=== PATIENT | male | born 1955 | race Caucasian/White ===

== ENCOUNTER 2022-07-15 19:33 | Inpatient (IN) ==
[2022-07-15 19:57] LABS: POC Creatinine 0.9 (0.6-1.2); POC Potassium 2.4 (3.3-5.1)
[2022-07-15] MEDS ORDERED: cefTRIAXone 1 GM VIAL IV ONE (20:27)
--- NOTE | 2022-07-15 20:27 | Emergency Department Note ---
HPI General Chief complaint: Rectal Bleed Stated complaint: Epigastric Pain Time Seen by Provider: 07/15/22 19:37 Source: patient and family Mode of arrival: ambulatory Limitations: no limitations History of Present Illness HPI Narrative: Narrative: Patient is a 67-year-old male with a history of liver mass and what he describes as a high average amount of drinking who presents to the emergency department due to weakness, fatigue, and blood in his vomit/stool. He states that for 2 days he has had significant weakness and fatigue. He states his weakness is generalized, and makes it difficult to walk. He states that 2 days ago he did have a fall. He states that he is having hard time walking approximately 20 feet due to the weakness and fatigue. He states that he vomited 2 days ago and had a significant amount of blood in his vomit that was bright red. He states that he had a small amount of bright red blood in his stool as well. He states that he has had a longer period of dark-colored stool. He denies any other symptoms at this time. Related Data Home Medications Medication Instructions Recorded Confirmed dorzolamide 22.3 mg-timolol 6.8 1 drp ophthalmic (eye) BID 07/15/22 07/15/22 mg/mL eye drops omeprazole 40 mg capsule,delayed 1 cap PO QDAY 07/15/22 07/15/22 release Allergies Allergy/AdvReac Type Severity Reaction Status Date / Time No Known Drug Allergies Allergy Verified 07/15/22 19:41 Review of Systems ROS ROS Narrative: Narrative: Constitutional: Reports weakness (Generalized); Denies fever Eyes: Denies eye pain or vision change ENT ED: Denies throat pain, hearing loss or rhinorrhea Cardiovascular: Denies chest pain, dyspnea on exertion, orthopnea or edema Respiratory: Denies shortness of breath or cough Gastrointestinal: Reports abdominal pain, nausea, vomiting, hematochezia and melena; Denies diarrhea or constipation Genitourinary: Denies dysuria, frequency, hematuria or incontinence Musculoskeletal: Denies back pain or myalgia Integumentary: Denies rash or lesions Neurological: Reports weakness (Generalized); Denies headache, numbness, confusion, abnormal gait or dizziness Endocrine: Denies fatigue or polyuria Hematological/Lymphatic: Denies easy bleeding or easy bruising [facility] Narrative Patient History Narrative: Narrative: Medical/Surgical/Family History All Active Problems (Updated 07/16/22 @ 02:19 by Richard Solis MD) Acute GI bleeding (Acute) Anemia (Acute) Abdominal pain (Acute) Skin lesion (Acute) Glaucoma (Chronic) Dermatitis (Chronic) Fatigue (Chronic) Cough (Chronic) Hemorrhagic diarrhea (Chronic) Physical exam (Chronic) Renal mass (Chronic) Syncope (Acute) Hives (Acute) Liver mass (Acute) Medical History Cough Dermatitis Fatigue Fatty liver MRI 03/18 Glaucoma POSSIBLE, IN LEFT EYE Hemorrhagic diarrhea Normal colonoscopy 09/17 Physical exam Renal mass Social History Smoking Status: Former smoker Substance Use: does not use Exam Narrative Narrative: Narrative: General Limitations: no limitations General appearance: Present alert and in no apparent distress; Absent anxious or appears intoxicated Head Head: Present atraumatic and normocephalic Eye Eye: Present PERRL and EOMI; Absent scleral icterus ENT ENT: Present mucous membranes moist; Absent nasal congestion Neck Neck: Present full ROM; Absent tenderness Chest Chest: Present normal inspection and symmetric chest wall rise Respiratory Respiratory: Present normal lung sounds bilaterally; Absent respiratory distress or accessory muscle use Cardiovascular Cardiovascular: Present regular rate, normal rhythm and normal heart sounds Adbominal Abdominal: Present soft, tenderness (Mild epigastric) and normal bowel sounds; Absent distention Extremities Extremities: Present normal inspection and full ROM Back Back: Present normal inspection and full ROM Neurological Neurological: Present alert and oriented X3 Psychiatric Psychiatric: Present normal affect and normal mood Skin Skin: Present warm (WNL), dry and pallor Course Vital Signs Vital signs: Vital Signs Temperature 97.9 F 07/15/22 19:35 Pulse Rate 119 H 07/15/22 19:35 Respiratory Rate 18 07/15/22 19:35 Blood Pressure 84/52 07/15/22 19:35 Pulse Oximetry (%) 95 07/15/22 19:35 Oxygen Delivery Method 07/15/22 19:35 Temperature 97.9 F 07/15/22 19:35 Pulse Rate 82 07/16/22 01:38 Respiratory Rate 12 07/16/22 01:38 Blood Pressure 102/63 07/16/22 01:38 Pulse Oximetry (%) 98 07/16/22 01:38 Oxygen Delivery Method 07/15/22 19:35 MDM MDM Narrative Medical decision making narrative: Narrative: Patient is a 67-year-old male who presents to the emergency department due to concern for weakness, fatigue, and blood in his vomit and stool. Given patient's reported alcohol use there is some concern that his bleed could be due to varices, but he does report a history concerning for reflux and potential peptic ulcer disease. Patient's tachycardia and mild hypotension upon arrival is concerning for significant anemia. Patient's Chem-8 demonstrates a concern for anemia with a hemoglobin of 6.5. Lab CBC shows a hemoglobin of 4.4. Blood has been ordered. Protonix bolus and drip have also been ordered. Ceftriaxone has also been ordered. We have begun to look for locations where we can transfer patient. Patient is also found to have a potassium of 2.4. Potassium and magnesium have been ordered. While attempting to transfer patient a bed at [facility] opened. I called and spoke to Dr. Polanco about this patient and he agreed to see, evaluate, and perform endoscopy on this patient. He requested hospitalist admission. I have spoken to Dr. Elmore who agrees to admit patient. Lab Data Result diagrams: 07/15/22 19:50 Labs: Lab Results 07/15/22 07/15/22 07/15/22 Range/Units 19:50 19:52 20:20 WBC 7.6 (4.5-11.0) K/mcL RBC 1.56 L (4.63-6.08) M/mcL Hgb 4.4 L* (13.7-17.5) g/dL Hct 14.7 L* (40.1-51.0) % POC Hct 19.0 L* (41-55) MCV 94.2 (80.0-100.0) fL MCH 28.2 (26.0-34.0) pg MCHC 29.9 L (31.0-36.0) g/dL RDW 18.1 H (11.5-14.5) % Plt Count 423 (140-440) K/mcL MPV 9.8 (7.4-10.4) fL Immature Gran % (Auto) 0.4 (0.0-0.5) % Neut % (Auto) 58.4 (38.0-78.0) % Lymph % (Auto) 26.5 (15.5-49.0) % [place] % (Auto) 9.7 (1.0-12.0) % Eos % (Auto) 4.7 (0.0-7.0) % Baso % (Auto) 0.3 (0.0-2.0) % Lymph # (Auto) 2.02 (1.50-4.80) K/mcL [place] # (Auto) 0.74 (0.10-0.90) K/mcL Eos # (Auto) 0.36 (0.00-0.70) K/mcL Baso # (Auto) 0.02 (0.00-0.30) K/mcL Immature Gran # 0.03 (0.00-0.05) K/mcl Absolute Neutrophils 4.46 (1.80-8.00) K/mcL PT 14.5 (11.9-14.5) sec INR 1.1 (0.9-1.1) POC Sodium 135 (133-145) POC Potassium 2.4 L* (3.3-5.1) POC Chloride 87 L (96-108) POC Total CO2 25.0 (22-30) POC BUN 15 (6-20) POC Creatinine 0.9 (0.6-1.2) POC Glucose 87 (70-105) POC WB Ioniz Calcium 1.00 L (1.16-1.32) Total Bilirubin (0.1-1.0) mg/dL Direct Bilirubin (<0.3) mg/dL AST (<40) U/L ALT (<40) U/L Alkaline Phosphatase (39-117) U/L Total Protein (5.9-8.4) gm/dL Albumin (3.2-5.2) gm/dL Globulin (2.2-3.7) gm/dL 07/15/22 Range/Units 20:20 WBC (4.5-11.0) K/mcL RBC (4.63-6.08) M/mcL Hgb (13.7-17.5) g/dL Hct (40.1-51.0) % POC Hct (41-55) MCV (80.0-100.0) fL MCH (26.0-34.0) pg MCHC (31.0-36.0) g/dL RDW (11.5-14.5) % Plt Count (140-440) K/mcL MPV (7.4-10.4) fL Immature Gran % (Auto) (0.0-0.5) % Neut % (Auto) (38.0-78.0) % Lymph % (Auto) (15.5-49.0) % [place] % (Auto) (1.0-12.0) % Eos % (Auto) (0.0-7.0) % Baso % (Auto) (0.0-2.0) % Lymph # (Auto) (1.50-4.80) K/mcL [place] # (Auto) (0.10-0.90) K/mcL Eos # (Auto) (0.00-0.70) K/mcL Baso # (Auto) (0.00-0.30) K/mcL Immature Gran # (0.00-0.05) K/mcl Absolute Neutrophils (1.80-8.00) K/mcL PT (11.9-14.5) sec INR (0.9-1.1) POC Sodium (133-145) POC Potassium (3.3-5.1) POC Chloride (96-108) POC Total CO2 (22-30) POC BUN (6-20) POC Creatinine (0.6-1.2) POC Glucose (70-105) POC WB Ioniz Calcium (1.16-1.32) Total Bilirubin 0.5 (0.1-1.0) mg/dL Direct Bilirubin 0.3 H (<0.3) mg/dL AST 86 H (<40) U/L ALT 37 (<40) U/L Alkaline Phosphatase 96 (39-117) U/L Total Protein 6.2 (5.9-8.4) gm/dL Albumin 3.3 (3.2-5.2) gm/dL Globulin 2.9 (2.2-3.7) gm/dL ED POC Tests ED POC Tests: GRETTA - SARS Antigen Negative EKG Data EKG #1: EKG attestation: Yes I reviewed and interpreted this EKG. EKG results narrative: Sinus tachycardia with a rate of 100, normal axis, [place] of approximately 120, QRS of 65, QTC of 541, T wave flattening in leads I, 2, 3, aVL, aVF, and absence of ST elevation or depression. Discharge Plan Patient/Caregiver Discharge Instructions Pt seen by SPECIAL EDUCATION SCIENCE TEACHER/PA only: No Clinical Impression: Acute GI bleeding, Anemia Patient Disposition: Xfer As Inpt ([facility]) Condition: Good Follow up with: Meka Polanco ARNP [Primary Care Provider] - Prescriptions: No Action dorzolamide-timolol 22.3-6.8 mg/mL drops 1 drp OPHTHALMIC (EYE) BID omeprazole 40 mg capsule,delayed release(DR/EC) 1 cap PO QDAY
[2022-07-15] MEDS ORDERED: PANTOPRAZOLE 40 MG VIAL IV ONE (20:31)
[2022-07-15] MEDS: 0.9 % SODIUM CHLORIDE 250 ML IV SCH (20:49)
[2022-07-15 20:59] LABS: Basophils # (Auto) 0.02 K/mcL (0.00-0.30); Basophils % (Auto) 0.3 % (0.0-2.0); Eosinophils # (Auto) 0.36 K/mcL (0.00-0.70); Eosinophils % (Auto) 4.7 % (0.0-7.0); Hematocrit 14.7 % (40.1-51.0); Hemoglobin 4.4 g/dL (13.7-17.5); Lymphocytes # (Auto) 2.02 K/mcL (1.50-4.80); Lymphocytes % (Auto) 26.5 % (15.5-49.0); Mean Cell Volume 94.2 fL (80.0-100.0); Mean Corpuscular HGB Conc 29.9 g/dL (31.0-36.0); Mean Platelet Volume 9.8 fL (7.4-10.4); Monocytes # (Auto) 0.74 K/mcL (0.10-0.90); Monocytes % (Auto) 9.7 % (1.0-12.0); Neutrophils % (Auto) 58.4 % (38.0-78.0); Platelet Count 423 K/mcL (140-440); RBC 1.56 M/mcL (4.63-6.08); Red Cell Distribution Width 18.1 % (11.5-14.5); WBC 7.6 K/mcL (4.5-11.0)
[2022-07-15] MEDS ORDERED: 0.9 % SODIUM CHLORIDE 250 ML IV SCH (21:15)
[2022-07-15 21:19] LABS: ALT/SGPT 37 U/L (<40); AST/SGOT 86 U/L (<40); Albumin 3.3 gm/dL (3.2-5.2); Alkaline Phosphatase 96 U/L (39-117); Bilirubin,Direct 0.3 mg/dL (<0.3); Bilirubin,Total 0.5 mg/dL (0.1-1.0); Globulin 2.9 gm/dL (2.2-3.7)
[2022-07-15 21:20] LABS: INR 1.1 (0.9-1.1); Prothrombin Time 14.5 sec (11.9-14.5)
[2022-07-15] MEDS ORDERED: POTASSIUM CHLORIDE 20 MEQ in DEXTROSE 5% IN WATER 250 ML IV ONE (21:28)
[2022-07-15] MEDS ORDERED: MAGNESIUM SULFATE 8.12 MEQ in DEXTROSE 5% IN WATER 50 ML IV ONE (21:28)
[2022-07-15] MEDS: PANTOPRAZOLE 80 MG in 0.9 % SODIUM CHLORIDE 100 ML IV SCH (21:31)
[2022-07-15] MEDS ORDERED: POTASSIUM CHLORIDE 40 MEQ/20 ML VIAL IV ONE (22:22)
[2022-07-16] MEDS ORDERED: LORazepam 2 MG/ML VIAL IM PRN (02:16)
[2022-07-16] MEDS: 0.9 % SODIUM CHLORIDE 250 ML IV SCH ×3 (07:24→20:33)
[2022-07-16] MEDS ORDERED: LORazepam 2 MG/ML VIAL IV PRN (07:58)
[2022-07-16 08:05] LABS: Basophils # (Auto) 0.02 K/mcL (0.00-0.30); Basophils % (Auto) 0.3 % (0.0-2.0); Eosinophils % (Auto) 1.7 % (0.0-7.0); Hematocrit 24.5 % (40.1-51.0); Hemoglobin 7.9 g/dL (13.7-17.5); Lymphocytes # (Auto) 0.82 K/mcL (1.50-4.80); Lymphocytes % (Auto) 14.1 % (15.5-49.0); Mean Cell Volume 87.2 fL (80.0-100.0); Mean Corpuscular HGB Conc 32.2 g/dL (31.0-36.0); Mean Platelet Volume 9.6 fL (7.4-10.4); Monocytes # (Auto) 0.73 K/mcL (0.10-0.90); Monocytes % (Auto) 12.5 % (1.0-12.0); Neutrophils % (Auto) 70.7 % (38.0-78.0); Platelet Count 217 K/mcL (140-440); RBC 2.81 M/mcL (4.63-6.08); Red Cell Distribution Width 16.2 % (11.5-14.5); WBC 5.8 K/mcL (4.5-11.0)
--- NOTE | 2022-07-16 08:45 | General Surgery Consult Note ---
HPI Data of Consult Consult date: 07/16/22 Requesting physician: Santo Elmore Primary Care Provider: Meka Polanco Consult Narrative Patient Information: Note initiated : 07/16/22 at 8:35 am Service Date, if different from initiated Date: [] Patient: Jose Alfonso 67 y/o M admitted on 07/16/22 for Epigastric Pain. Chief Complaint: [] cc:: CC: Santo Elmore MD 67-year-old male with long history of chronic alcoholism. Patient had 2 episodes of rectal bleeding with bright red and black stools a few days ago. He also had emesis of bright red blood. He is he became progressively weaker and dizzy and presented to the emergency room where he was found to have a hemoglobin of 4.4. He has been transfused and his present hemoglobin is 7.9. Patient does not take any nonsteroidals or salicylate type drugs. He is being seen for urgent endoscopy to assess the source of his bleeding. Constitutional Constitutional: Present anorexia, fatigue, lethargy, malaise and weight loss (20 pound weight loss) EENT Ears: Absent decreased hearing Nose, mouth and throat: Absent dental pain Additional comments: Full dentures Cardiovascular Cardiovascular: Present lightheadedness, orthopnea, palpatations and rapid heart rate; Absent dyspnea Respiratory Respiratory: Absent cough or wheezing Gastrointestinal Gastrointestinal: Present abdominal pain, heartburn, hematochezia, melena, nausea and vomiting Musculoskeletal Musculoskeletal: Present myalgias Integumentary Integumentary: Absent changing lesions, new lesions or pruritus Neurological Neurological: Present tremor(s); Absent focal weakness, syncope or vertigo Psychiatric Psychiatric: Present irritability; Absent depression Endocrine Endocrine: Present fatigue Hematologic/Lymphatic Hematologic/Lymphatic: Absent easy bleeding, easy bruising or lymphadenopathy Allergic/Immunologic Allergic/Immunologic: Absent tongue swelling, throat swelling, uticaria, wheezing or lip swelling PFSH PFSH All Active Problems (Updated 07/16/22 @ 08:44 by Yoselyn Polanco MD) Acute on chronic alcoholic liver disease (Acute) Acute GI bleeding (Acute) Anemia (Acute) Abdominal pain (Acute) Skin lesion (Acute) Glaucoma (Chronic) Dermatitis (Chronic) Fatigue (Chronic) Cough (Chronic) Hemorrhagic diarrhea (Chronic) Physical exam (Chronic) Renal mass (Chronic) Syncope (Acute) Hives (Acute) Liver mass (Acute) Medical History Cough Dermatitis Fatigue Fatty liver MRI 03/18 Glaucoma POSSIBLE, IN LEFT EYE Hemorrhagic diarrhea Normal colonoscopy 09/17 Physical exam Renal mass Social History marital status: single smoking status: Never smoker substance use type: does not use MEDS/ALLERGIES Home Medications and Allergies Home Medications Medication Instructions Recorded Confirmed Type dorzolamide 22.3 mg-timolol 6.8 1 drp ophthalmic (eye) BID 07/15/22 07/16/22 History mg/mL eye drops omeprazole 40 mg capsule,delayed 1 cap PO QDAY 07/15/22 07/16/22 History release acetaminophen 500 mg tablet 500 mg PO PRN PRN pain 07/16/22 07/16/22 History multivitamin with minerals-folic 1 tab PO QDAY 07/16/22 07/16/22 History acid 200 mcg chewable tablet (Adult Multivitamin Gummies) Allergies Allergy/AdvReac Type Severity Reaction Status Date / Time No Known Drug Allergies Allergy Verified 07/16/22 07:41 Physical Examination Vital Signs Vital signs: Temp Pulse Resp BP Pulse Ox O2 Del Method 98.6 F 90 22 127/72 97 07/16/22 08:00 07/16/22 08:00 07/16/22 08:00 07/16/22 08:00 07/16/22 08:00 07/15/22 19:35 General physical appearance General physical exam: no distress, severe distress and cachectic Eyes Eye exam: PERRL and normal ocular movement; negative icteric ENT ENT exam: normal mucosa and other (Edentulous); negative no hearing loss Head Head exam IM: Present atraumatic, normal inspection and normocephalic Neck Neck exam: no masses, no bruits, trachea midline, no lymphadenopathy and no venous distension Cardiovascular Cardiovascular exam IM: Present normal rate and rhythm, RRR, +S1 and +S2; Absent JVD Respiratory Respiratory exam: normal expansion, normal respiratory effort and clear to auscultation Abdomen Abdomen: Present soft, non tender and bowel sounds (Normal bowel sounds); Absent organomegaly or distended Integumentary Integumentary: Present no rash, no growths and no abnormal pigmentation Neurologic Neurologic: Present normal coordination and normal sensation Musculoskeletal Musculoskeletal: Present normal gait and normal posture Psychiatric Psychiatric: Present oriented to time, oriented to person, oriented to place, speech is normal, memory intact and other Results Labs Result diagrams: 07/16/22 06:51 07/16/22 08:06 Labs: Abnormal lab results 07/15/22 07/15/22 07/15/22 Range/Units 19:50 19:52 20:20 RBC 1.56 L (4.63-6.08) M/mcL Hgb 4.4 L* (13.7-17.5) g/dL Hct 14.7 L* (40.1-51.0) % POC Hct 19.0 L* (41-55) MCHC 29.9 L (31.0-36.0) g/dL RDW 18.1 H (11.5-14.5) % Immature Gran % (Auto) (0.0-0.5) % Lymph % (Auto) (15.5-49.0) % [place] % (Auto) (1.0-12.0) % Lymph # (Auto) (1.50-4.80) K/mcL POC Potassium 2.4 L* (3.3-5.1) POC Chloride 87 L (96-108) POC WB Ioniz Calcium 1.00 L (1.16-1.32) Direct Bilirubin 0.3 H (<0.3) mg/dL AST 86 H (<40) U/L 07/16/22 Range/Units 06:51 RBC 2.81 L (4.63-6.08) M/mcL Hgb 7.9 L (13.7-17.5) g/dL Hct 24.5 L (40.1-51.0) % POC Hct (41-55) MCHC (31.0-36.0) g/dL RDW 16.2 H (11.5-14.5) % Immature Gran % (Auto) 0.7 H (0.0-0.5) % Lymph % (Auto) 14.1 L (15.5-49.0) % [place] % (Auto) 12.5 H (1.0-12.0) % Lymph # (Auto) 0.82 L (1.50-4.80) K/mcL POC Potassium (3.3-5.1) POC Chloride (96-108) POC WB Ioniz Calcium (1.16-1.32) Direct Bilirubin (<0.3) mg/dL AST (<40) U/L Diabetes panel 07/15/22 Range/Units 20:20 AST 86 H (<40) U/L ALT 37 (<40) U/L Alkaline Phosphatase 96 (39-117) U/L Total Protein 6.2 (5.9-8.4) gm/dL Albumin 3.3 (3.2-5.2) gm/dL Calcium panel 07/15/22 Range/Units 20:20 Albumin 3.3 (3.2-5.2) gm/dL Adrenal panel 07/15/22 Range/Units 20:20 Total Bilirubin 0.5 (0.1-1.0) mg/dL AST 86 H (<40) U/L ALT 37 (<40) U/L Alkaline Phosphatase 96 (39-117) U/L Total Protein 6.2 (5.9-8.4) gm/dL Albumin 3.3 (3.2-5.2) gm/dL All other labs normal. A/P Assessment and plan (1) Acute GI bleeding: Status: Acute (2) Anemia: Status: Acute (3) Acute on chronic alcoholic liver disease: Status: Acute (4) Fatigue: Status: Chronic Plan Patient has been started on pantoprazole Octreotide drip will be ordered pending endoscopy And patient should be monitored for possible alcohol withdrawal Upper endoscopy will be performed later this morning Sepsis Sepsis Identified: No Time Spent With Patient Time: Total time spent is greater than 50% in coordination of care (as documented) at patient's floor/unit and/or counseling patient:
[2022-07-16] MEDS ORDERED: OCTREOTIDE ACETATE 100 MCG/ML VIAL SQ ONE (09:00)
[2022-07-16] MEDS ORDERED: OCTREOTIDE ACETATE 500 MCG in 0.9 % SODIUM CHLORIDE 499.5 ML IV SCH (09:00)
[2022-07-16] MEDS ORDERED: OCTREOTIDE ACETATE 50 MCG/ML AMPUL IV ONE (09:00)
[2022-07-16] MEDS: PANTOPRAZOLE 80 MG in 0.9 % SODIUM CHLORIDE 100 ML IV SCH ×3 (09:03→20:34)
[2022-07-16 09:16] LABS: Blood Urea Nitrogen 16 mg/dL (8-23); Calcium 7.5 mg/dL (8.6-10.4); Carbon Dioxide 28 mmol/L (22-30); Chloride 94 mmol/L (96-108); Glomerular Filtration Rate 103; Glucose 89 mg/dL (70-105)
--- NOTE | 2022-07-16 10:49 | Internal Med History&Physical ---
HPI History of Present Illness Patient information: Note initiated : 07/16/22 at 10:45 am Service Date, if different from initiated Date: [] Patient: Jose Alfonso 67 y/o M admitted on 07/16/22 for Epigastric Pain. Chief Complaint: [] History of present illness: Mr. Alfonso is a 67 year old Male with a history of alcohol use disorder, GERD who says he has experienced abdominal discomfort and dark stools for couple weeks. This is similar to abdominal discomfort he experienced before, he said he was given a prescription for omeprazole which helped his pain. The patient says that he does drink whiskey 3 times a week, denies NSAID use. The emergency department the patient had a hemoglobin of 4.4, will receive 3 units of red blood cells. Patient was hemodynamically stable after starting a blood transfusion. Review of systems Constitutional: no fever, fatigue, or weight loss Eyes: no vision changes or pain Cardiovascular: no chest pain, no palpitations Respiratory: no cough or dyspnea Gastrointestinal: Positive for epigastric abdominal pain, dark stools. Genitourinary: no dysuria or difficulty voiding Musculoskeletal: no arthralgia or myalgia Integumentary: no skin lesion or wound Neurological: no focal weakness or numbness Psychiatric: no anxiety or depression Physical exam Head: Atraumatic, normal inspection. Eyes: normal appearance, no scleral icterus. Neck: full ROM Respiratory: no respiratory distress. Cardiovascular: normal rate and rhythm, S1, S2. GI/Abdominal: soft, mild epigastric discomfort, no guarding. Extremities: full range of motion, nontender. Neurological: CN II-XII intact, intact motor, intact sensation. Psychiatric: normal mood. Skin: warm, normal color PFSH PFSH All Active Problems (Updated 07/16/22 @ 08:44 by Yoselyn Polanco MD) Acute on chronic alcoholic liver disease (Acute) Acute GI bleeding (Acute) Anemia (Acute) Abdominal pain (Acute) Skin lesion (Acute) Glaucoma (Chronic) Dermatitis (Chronic) Fatigue (Chronic) Cough (Chronic) Hemorrhagic diarrhea (Chronic) Physical exam (Chronic) Renal mass (Chronic) Syncope (Acute) Hives (Acute) Liver mass (Acute) Medical History Cough Dermatitis Fatigue Fatty liver MRI 03/18 Glaucoma POSSIBLE, IN LEFT EYE Hemorrhagic diarrhea Normal colonoscopy 09/17 Physical exam Renal mass Social History marital status: single smoking status: Never smoker substance use type: does not use MEDS/ALLERGIES Home Medications and Allergies Home Medications Medication Instructions Recorded Confirmed Type dorzolamide 22.3 mg-timolol 6.8 1 drp ophthalmic (eye) BID 07/15/22 07/16/22 History mg/mL eye drops omeprazole 40 mg capsule,delayed 1 cap PO QDAY 07/15/22 07/16/22 History release acetaminophen 500 mg tablet 500 mg PO PRN PRN pain 07/16/22 07/16/22 History multivitamin with minerals-folic 1 tab PO QDAY 07/16/22 07/16/22 History acid 200 mcg chewable tablet (Adult Multivitamin Gummies) Allergies Allergy/AdvReac Type Severity Reaction Status Date / Time No Known Drug Allergies Allergy Verified 07/16/22 07:41 EXAM Constitutional Vitals: Temp Pulse Resp BP Pulse Ox O2 Del Method 98.6 F 83 16 133/71 95 07/16/22 08:00 07/16/22 10:00 07/16/22 10:00 07/16/22 10:00 07/16/22 10:00 07/15/22 19:35 DATA Data Completed and Pending Labs: Labs from last 24 hours 07/16/22 07/16/22 07/15/22 08:06 06:51 20:20 WBC 5.8 RBC 2.81 L Hgb 7.9 L Hct 24.5 L POC Hct MCV 87.2 MCH 28.1 MCHC 32.2 RDW 16.2 H Plt Count 217 MPV 9.6 Immature Gran % (Auto) 0.7 H Neut % (Auto) 70.7 Lymph % (Auto) 14.1 L [place] % (Auto) 12.5 H Eos % (Auto) 1.7 Baso % (Auto) 0.3 Lymph # (Auto) 0.82 L [place] # (Auto) 0.73 Eos # (Auto) 0.10 Baso # (Auto) 0.02 Immature Gran # 0.04 Absolute Neutrophils 4.11 PT INR POC Sodium Sodium 135 POC Potassium Potassium 3.0 L POC Chloride Chloride 94 L Carbon Dioxide 28 POC Total CO2 Anion Gap 13.0 POC BUN BUN 16 Creatinine 0.6 L POC Creatinine GFR Calculation 103 Glucose 89 POC Glucose Calcium 7.5 L POC WB Ioniz Calcium Magnesium 2.0 Total Bilirubin 0.5 Direct Bilirubin 0.3 H AST 86 H ALT 37 Alkaline Phosphatase 96 Total Protein 6.2 Albumin 3.3 Globulin 2.9 07/15/22 07/15/22 07/15/22 20:20 19:52 19:50 WBC 7.6 RBC 1.56 L Hgb 4.4 L* Hct 14.7 L* POC Hct 19.0 L* MCV 94.2 MCH 28.2 MCHC 29.9 L RDW 18.1 H Plt Count 423 MPV 9.8 Immature Gran % (Auto) 0.4 Neut % (Auto) 58.4 Lymph % (Auto) 26.5 [place] % (Auto) 9.7 Eos % (Auto) 4.7 Baso % (Auto) 0.3 Lymph # (Auto) 2.02 [place] # (Auto) 0.74 Eos # (Auto) 0.36 Baso # (Auto) 0.02 Immature Gran # 0.03 Absolute Neutrophils 4.46 PT 14.5 INR 1.1 POC Sodium 135 Sodium POC Potassium 2.4 L* Potassium POC Chloride 87 L Chloride Carbon Dioxide POC Total CO2 25.0 Anion Gap POC BUN 15 BUN Creatinine POC Creatinine 0.9 GFR Calculation Glucose POC Glucose 87 Calcium POC WB Ioniz Calcium 1.00 L Magnesium Total Bilirubin Direct Bilirubin AST ALT Alkaline Phosphatase Total Protein Albumin Globulin A/P Narrative A/P Narrative: Assessment: 67-year-old male with a history of alcohol use disorder, GERD admitted for acute anemia likely secondary to upper GI bleed. #Acute anemia, probable upper GI bleed #Alcohol use disorder #GERD #Malnourishment Plan -Received 3 units of red blood cell in the ED. -Monitor hemoglobin, transfuse for hemoglobin less than 7 or symptomatic anemia. -Helicobacter pylori stool antigen. -Protonix infusion. -Plan for EGD with general surgery. -Vitamin supplementation. -Monitor for alcohol withdrawal. -N.p.o. for EGD. 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
[2022-07-16] MEDS ORDERED: fentaNYL 100 MCG/2 ML VIAL IV ONE (11:30)
[2022-07-16] MEDS ORDERED: KETAMINE 50 MG/ML Syringe (ANEST) IV ONE (11:30)
[2022-07-16] MEDS ORDERED: LIDOCAINE HCL/PF 100 MG/5 ML SYRINGE IV ONE (11:30)
[2022-07-16] MEDS ORDERED: PROPOFOL 200 MG/20 ML VIAL IV ONE (11:30)
[2022-07-16] MEDS ORDERED: GLYCOPYRROLATE 0.2 MG/ML VIAL IV ONE (11:30)
--- NOTE | 2022-07-16 12:09 | Brief Operative Note ---
Brief Operative Note Date of procedure: 07/16/22 Pre-op diagnosis: upper gastrointestinal bleeding;hemorrhagic anemia Post-op diagnosis: other (acute toxic gastropathywithout varices or ulceration) Procedure: ESOPHAGOGASTRODUODENOSCOPY Grafts/Implants: No Anesthesia: MAC Findings: DIFFUSE THICKENING AND EDEMA OF GASTRIC FOLDS;NORMAL ESOPHAGUS WITHOUT ULCERATION OR VARICES; THICKENING OF DUODENAL FOLDS; SMALL AMOUNT OF THIN BLOOD IN DUODENAL BULB Complications: none Surgeon: Yoselyn Polanco Estimated blood loss (cc): 0 Specimens Removed/Pathology: none sent Condition: stable Disposition: PACU
[2022-07-16] MEDS: THIAMINE 100 MG in 0.9 % SODIUM CHLORIDE 50 ML IV SCH (13:11)
[2022-07-16 13:41] LABS: Basophils # (Auto) 0.01 K/mcL (0.00-0.30); Basophils % (Auto) 0.2 % (0.0-2.0); Eosinophils # (Auto) 0.07 K/mcL (0.00-0.70); Eosinophils % (Auto) 1.4 % (0.0-7.0); Hematocrit 23.5 % (40.1-51.0); Hemoglobin 7.6 g/dL (13.7-17.5); Lymphocytes # (Auto) 0.67 K/mcL (1.50-4.80); Lymphocytes % (Auto) 13.2 % (15.5-49.0); Mean Cell Volume 87.4 fL (80.0-100.0); Mean Corpuscular HGB Conc 32.3 g/dL (31.0-36.0); Mean Platelet Volume 9.4 fL (7.4-10.4); Monocytes # (Auto) 0.57 K/mcL (0.10-0.90); Monocytes % (Auto) 11.2 % (1.0-12.0); Neutrophils % (Auto) 73.4 % (38.0-78.0); Platelet Count 194 K/mcL (140-440); RBC 2.69 M/mcL (4.63-6.08); Red Cell Distribution Width 16.7 % (11.5-14.5); WBC 5.1 K/mcL (4.5-11.0)
[2022-07-16] MEDS ORDERED: POTASSIUM CHLORIDE 40 MEQ in DEXTROSE 5% IN WATER 500 ML IV ONE (16:00)
[2022-07-16] MEDS ORDERED: LACTATED RINGERS 1,000 ML IV ONE (17:22)
[2022-07-16 18:45] LABS: Basophils # (Auto) 0.01 K/mcL (0.00-0.30); Basophils % (Auto) 0.2 % (0.0-2.0); Eosinophils # (Auto) 0.04 K/mcL (0.00-0.70); Eosinophils % (Auto) 0.9 % (0.0-7.0); Hematocrit 26.9 % (40.1-51.0); Hemoglobin 8.3 g/dL (13.7-17.5); Lymphocytes # (Auto) 0.78 K/mcL (1.50-4.80); Lymphocytes % (Auto) 17.9 % (15.5-49.0); Mean Cell Volume 91.2 fL (80.0-100.0); Mean Corpuscular HGB Conc 30.9 g/dL (31.0-36.0); Mean Platelet Volume 9.6 fL (7.4-10.4); Monocytes # (Auto) 0.55 K/mcL (0.10-0.90); Monocytes % (Auto) 12.6 % (1.0-12.0); Neutrophils % (Auto) 67.9 % (38.0-78.0); Platelet Count 167 K/mcL (140-440); RBC 2.95 M/mcL (4.63-6.08); Red Cell Distribution Width 16.4 % (11.5-14.5); WBC 4.4 K/mcL (4.5-11.0)
[2022-07-17] MEDS: PANTOPRAZOLE 80 MG in 0.9 % SODIUM CHLORIDE 100 ML IV SCH ×2 (06:39→07:04)
[2022-07-17 06:44] LABS: Basophils # (Auto) 0.02 K/mcL (0.00-0.30); Basophils % (Auto) 0.4 % (0.0-2.0); Eosinophils # (Auto) 0.11 K/mcL (0.00-0.70); Hematocrit 24.7 % (40.1-51.0); Hemoglobin 7.9 g/dL (13.7-17.5); Lymphocytes # (Auto) 0.81 K/mcL (1.50-4.80); Lymphocytes % (Auto) 14.4 % (15.5-49.0); Mean Cell Volume 89.2 fL (80.0-100.0); Mean Platelet Volume 9.6 fL (7.4-10.4); Monocytes # (Auto) 0.52 K/mcL (0.10-0.90); Monocytes % (Auto) 9.2 % (1.0-12.0); Neutrophils % (Auto) 73.8 % (38.0-78.0); Platelet Count 188 K/mcL (140-440); RBC 2.77 M/mcL (4.63-6.08); Red Cell Distribution Width 16.2 % (11.5-14.5); WBC 5.6 K/mcL (4.5-11.0)
[2022-07-17 07:09] LABS: Blood Urea Nitrogen 10 mg/dL (8-23); Calcium 7.2 mg/dL (8.6-10.4); Carbon Dioxide 25 mmol/L (22-30); Chloride 98 mmol/L (96-108); Glomerular Filtration Rate 111; Glucose 119 mg/dL (70-105); Haptoglobin 82 mg/dL (30-200); Iron 31 ug/dL (61-157); Lactate Dehydrogenase 196 U/L (135-225); TIBC Calculation 242 ug/dl (228-428); Transferrin % Saturation 13 % (20-50)
[2022-07-17] MEDS ORDERED: FOLIC ACID/VITAMIN B COMP W-C 1 TAB TABLET PO SCH (09:00)
[2022-07-17] MEDS: THIAMINE 100 MG in 0.9 % SODIUM CHLORIDE 50 ML IV SCH (09:02)
[2022-07-17] MEDS ORDERED: IOPAMIDOL 100 ML BOTTLE IV ONE (10:20)
[2022-07-17] MEDS ORDERED: IRON SUCROSE COMPLEX 400 MG in 0.9 % SODIUM CHLORIDE 250 ML IV SCH (11:00)
--- NOTE | 2022-07-17 11:12 | Internal Med Progress Note ---
SUBJECTIVE Subjective Patient information: Note initiated : 07/17/22 at 11:08 am Service Date, if different from initiated Date: [] Patient: Jose Alfonso 67 y/o M admitted on 07/16/22 for Epigastric Pain. Chief Complaint: [] Interval history: Mr. Alfonso is a 67 year old Male with a history of alcohol use disorder, GERD who says he has experienced abdominal discomfort and dark stools for couple weeks. This is similar to abdominal discomfort he experienced before, he said he was given a prescription for omeprazole which helped his pain. The patient says that he does drink whiskey 3 times a week, denies NSAID use. The emergency department the patient had a hemoglobin of 4.4, will receive 3 units of red blood cells. Patient was hemodynamically stable after starting a blood transfusion. 07/17 EGD showed diffuse thickening and edema of the gastric folds, esophagus without ulceration or varices, thickening of duodenal folds, small amount of thin blood in the duodenal bulb. Discussed with general surgery, did not feel this explains the patient's anemia, ordered CT abdomen pelvis to evaluate for cause of anemia. Otherwise, the patient's hemoglobin is stable. Venofer IV once today. Continues on Protonix infusion, monitoring hemoglobin. Physical exam Head: Atraumatic, normal inspection. Eyes: normal appearance, no scleral icterus. Neck: full ROM Respiratory: no respiratory distress. Cardiovascular: normal rate and rhythm, S1, S2. GI/Abdominal: soft, mild epigastric discomfort, no guarding. Extremities: full range of motion, nontender. Neurological: CN II-XII intact, intact motor, intact sensation. Psychiatric: normal mood. Skin: warm, normal color Constitutional Vitals: Vital Signs Temp Pulse Resp BP Pulse Ox O2 Del Method 98 F 81 17 133/73 100 07/17/22 08:02 07/17/22 08:02 07/17/22 08:02 07/17/22 08:02 07/17/22 08:02 07/15/22 19:35 Period Temp Pulse Resp BP Sys/Perez Pulse Ox O2 Del Method O2 Flow Rate Last 24 Hr 97.9 F-98.5 F 75-94 13-23 105-142/52-88 88-100 Intake and Output 07/16/22 07/17/22 07/17/22 21:59 05:59 13:59 Intake Total 1861 520 340 Output Total 150 1025 375 Balance 171505 -35 Weight 51.88 kg Intake & Output: Intake & Output 07/16/22 07/17/22 07/17/22 21:59 05:59 13:59 Intake Total 1861 520 340 Output Total 150 1025 375 Balance 171505 -35 Weight 51.88 kg Intake: IV 1381 520 100 Sodium Chloride 0.9% 250 ml @ 20 20 mls/hr IV .[id number] [facility] Rx#: [id number] Lactated Ringers 1,000 ml @ 1000 Wide Open IV BOLUS ONE Rx#: [id number] Sandostatin 500 Mcg In Sodium 210 Chloride 0.9% 499.5 ml @ 25 MCG /HR 25 mls/hr IV Q20H [facility] Rx#: [id number] Protonix 80 mg In Sodium 100 100 Chloride 0.9% 100 ml @ 8 MG/HR 10 mls/hr IV Q10H [facility] Rx#: [id number] Potassium Chloride 40 Meq In 520 Dextrose 5% in Water 500 ml @ 130 mls/hr IV ONCE ONE Rx#: [id number] Vitamin B1 100 mg In Sodium 51 Chloride 0.9% 50 ml @ 50 mls/hr IV DAILY [facility] Rx#:[id number] Oral 480 240 Output: Void Amount 150 325 375 Urine/Stool Mix 700 Other: Meal Breakfast Percent of Meal Consumed 50% Urine Appearance Clear Clear Clear Urine Color Light Marina Light Marina Dark Yellow Urine Odor Normal Normal Stool Size Moderate Moderate Stool Color Black Dark Red Blood Stool Consistency Formed Liquid Watery Chaya # Voids 1 # Bowel Movements 1 1 OBJ DATA Labs CBC & Chem 7: 07/17/22 05:08 07/17/22 05:08 Labs: Abnormal Lab Results 07/17/22 07/17/22 07/16/22 05:08 05:08 18:16 WBC 4.4 L RBC 2.77 L 2.95 L Hgb 7.9 L 8.3 L Hct 24.7 L 26.9 L POC Hct MCHC 30.9 L RDW 16.2 H 16.4 H Immature Gran % (Auto) Lymph % (Auto) 14.4 L [place] % (Auto) 12.6 H Lymph # (Auto) 0.81 L 0.78 L Sodium 131 L POC Potassium Potassium POC Chloride Chloride Creatinine 0.5 L Glucose 119 H Calcium 7.2 L POC WB Ioniz Calcium Iron 31 L Transferrin % Sat 13 L Direct Bilirubin AST 07/16/22 07/16/22 07/16/22 12:26 08:06 06:51 WBC RBC 2.69 L 2.81 L Hgb 7.6 L 7.9 L Hct 23.5 L 24.5 L POC Hct MCHC RDW 16.7 H 16.2 H Immature Gran % (Auto) 0.6 H 0.7 H Lymph % (Auto) 13.2 L 14.1 L [place] % (Auto) 12.5 H Lymph # (Auto) 0.67 L 0.82 L Sodium POC Potassium Potassium 3.0 L POC Chloride Chloride 94 L Creatinine 0.6 L Glucose Calcium 7.5 L POC WB Ioniz Calcium Iron Transferrin % Sat Direct Bilirubin AST 07/15/22 07/15/22 07/15/22 20:20 19:52 19:50 WBC RBC 1.56 L Hgb 4.4 L* Hct 14.7 L* POC Hct 19.0 L* MCHC 29.9 L RDW 18.1 H Immature Gran % (Auto) Lymph % (Auto) [place] % (Auto) Lymph # (Auto) Sodium POC Potassium 2.4 L* Potassium POC Chloride 87 L Chloride Creatinine Glucose Calcium POC WB Ioniz Calcium 1.00 L Iron Transferrin % Sat Direct Bilirubin 0.3 H AST 86 H Meds: Medications Pantoprazole Sodium 80 mg/ (Sodium Chloride) 100 mls @ 10 mls/hr IV Q10H [facility] Last Admin: 07/17/22 07:04 Dose: 8 mg/hr, 10 mls/hr Thiamine HCl 100 mg/ Sodium (Chloride) 51 mls @ 50 mls/hr IV DAILY [facility] Stop: 07/18/22 10:02 Last Admin: 07/17/22 09:02 Dose: 50 mls/hr Iron Sucrose 400 mg/ Sodium (Chloride) 270 mls @ 100 mls/hr IV ONCE [facility] Stop: 07/17/22 13:41 Lorazepam (Lorazepam 2 Mg/Ml Vial) 2 mg IV Q2HP PRN PRN Reason: CIWA-A >6 or HR >100 Multivit/Ca Carb/B Cmplx/FA/Prenat (Folic Acid/Vitamin B Comp W-C 1 Tab Tablet) 1 tab PO DAILY [facility] Last Admin: 07/17/22 08:53 Dose: 1 tab A/P Narrative A/P Narrative: Assessment: 67-year-old male with a history of alcohol use disorder, GERD admitted for acute anemia likely secondary to upper GI bleed. EGD showed diffuse thickening and edema of gastric folds, thickening of duodenal folds, small amount of blood in duodenal bulb. Patient received 3 units of red blood cells in the ED. #Acute anemia, uncertain etiology possible slow upper GI bleed #Alcohol use disorder #GERD #Malnourishment Plan -CT abdomen pelvis to evaluate for cause of anemia. -Follow hemoglobin, transfuse for hemoglobin less than 7 or symptomatic anemia. -Check LDH and haptoglobin. -Helicobacter pylori stool antigen. -Protonix infusion. -Venofer 400 mg IV today. -General surgery following. -Consider colonoscopy however the patient said he had a colonoscopy a couple years ago which was reportedly only positive for polyps. -Vitamin supplementation. -Monitor for alcohol withdrawal. -Full liquid diet. 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
[2022-07-17] MEDS ORDERED: 0.9 % SODIUM CHLORIDE 250 ML IV SCH (13:00)
--- NOTE | 2022-07-17 13:23 | Discharge Summary ---
Discharge Provider Provider IMPORTANT FOLLOW-UP INFORMATION FOR PCP: Patient information: Note initiated : 07/17/22 at 1:15 pm Service Date, if different from initiated Date: [] Patient: Jose Alfonso 67 y/o M admitted on 07/16/22 for Epigastric Pain. Chief Complaint: [] Date of admission: 07/16/22 07:05 Discharge date: 07/17/22 Primary care physician: Meka Polanco Consults: 07/16/22 Consult to Physician [CONS] Stat Comment: Consulting Provider: Santo Elmore Reason For Exam: Physician to Consult Consult to Physician [CONS] Stat Comment: Consulting Provider: Yoselyn Polanco Reason For Exam: Physician to Consult Consult to Physician [CONS] Stat Comment: Consulting Provider: Yoselyn Polanco Reason For Exam: Physician to Consult COURSE Hospital Course Hospital course: Mr. Alfonso is a 67 year old Male with a history of alcohol use disorder, GERD who says he has experienced abdominal discomfort and dark stools for couple weeks. This is similar to abdominal discomfort he experienced before, he said he was given a prescription for omeprazole which helped his pain. The patient says that he does drink whiskey 3 times a week, denies NSAID use. The emergency department the patient had a hemoglobin of 4.4, will receive 3 units of red blood cells. Patient was hemodynamically stable after receiving the blood transfusion. 07/17 EGD showed diffuse thickening and edema of the gastric folds, esophagus without ulceration or varices, thickening of duodenal folds, small amount of thin blood in the duodenal bulb. Hemoglobin this morning was 8.3 after receiving 3 units of blood in the ED. Discussed with general surgery, did not feel this explains the patient's anemia, ordered CT abdomen pelvis with contrast to evaluate for cause of anemia. CT abdomen pelvis showed a prominent round hemorrhagic mass process within the pancreatic head with a focal blush suggesting an active bleed intra-abdominal bleed near the pancreatic mass. Patient's hemoglobin trended down to 7.3, another unit of blood was ordered with additional red blood cells typed and screened to maintain 5 red blood cell units ahead. Discussed the patient with [facility], the patient was excepted to the [facility] ICU. Patient will be monitored closely in the ICU at [facility] until he is able to transfer to by helicopter. Physical exam Head: Atraumatic, normal inspection. Eyes: normal appearance, no scleral icterus. Neck: full ROM Respiratory: no respiratory distress. Cardiovascular: normal rate and rhythm, S1, S2. GI/Abdominal: soft, mild epigastric discomfort, no guarding. Extremities: full range of motion, nontender. Neurological: CN II-XII intact, intact motor, intact sensation. Psychiatric: normal mood. Skin: warm, normal color Discharge diagnosis: Acute blood loss anemia secondary to intra-abdominal arterial bleed Secondary discharge diagnosis: Pancreatic head mass Time Spent with Patient Time attestation: Total time spent providing and/or coordinating discharge services: Time spent: Greater than 30 minutes EXAM Constitutional Vitals: Temp Pulse Resp BP Pulse Ox O2 Del Method 98 F 81 17 133/73 100 07/17/22 08:02 07/17/22 08:02 07/17/22 08:02 07/17/22 08:02 07/17/22 08:02 07/16/22 08:33 Discharge Data Data Completed and Pending Labs on day of discharge: Labs from last 24 hours 07/17/22 07/17/22 07/17/22 12:16 05:08 05:08 WBC RBC Hgb 7.3 L Hct MCV MCH MCHC RDW Plt Count MPV Immature Gran % (Auto) Neut % (Auto) Lymph % (Auto) [place] % (Auto) Eos % (Auto) Baso % (Auto) Lymph # (Auto) [place] # (Auto) Eos # (Auto) Baso # (Auto) Immature Gran # Absolute Neutrophils Haptoglobin 82 Sodium 131 L Potassium 3.9 Chloride 98 Carbon Dioxide 25 Anion Gap 8.0 BUN 10 Creatinine 0.5 L GFR Calculation 111 Glucose 119 H Calcium 7.2 L Iron 31 L TIBC 242 Unsat Iron Binding 211 Transferrin % Sat 13 L Ferritin 53.0 Lactate Dehydrogenase 196 07/17/22 07/16/22 07/16/22 05:08 18:16 12:26 WBC 5.6 4.4 L 5.1 RBC 2.77 L 2.95 L 2.69 L Hgb 7.9 L 8.3 L 7.6 L Hct 24.7 L 26.9 L 23.5 L MCV 89.2 91.2 87.4 MCH 28.5 28.1 28.3 MCHC 32.0 30.9 L 32.3 RDW 16.2 H 16.4 H 16.7 H Plt Count 188 167 194 MPV 9.6 9.6 9.4 Immature Gran % (Auto) 0.2 0.5 0.6 H Neut % (Auto) 73.8 67.9 73.4 Lymph % (Auto) 14.4 L 17.9 13.2 L [place] % (Auto) 9.2 12.6 H 11.2 Eos % (Auto) 2.0 0.9 1.4 Baso % (Auto) 0.4 0.2 0.2 Lymph # (Auto) 0.81 L 0.78 L 0.67 L [place] # (Auto) 0.52 0.55 0.57 Eos # (Auto) 0.11 0.04 0.07 Baso # (Auto) 0.02 0.01 0.01 Immature Gran # 0.01 0.02 0.03 Absolute Neutrophils 4.16 2.96 3.74 Haptoglobin Sodium Potassium Chloride Carbon Dioxide Anion Gap BUN Creatinine GFR Calculation Glucose Calcium Iron TIBC Unsat Iron Binding Transferrin % Sat Ferritin Lactate Dehydrogenase Discharge Plan Patient/Caregiver Discharge Instructions Prescriptions: No Action dorzolamide-timolol 22.3-6.8 mg/mL drops 1 drp OPHTHALMIC (EYE) BID omeprazole 40 mg capsule,delayed release(DR/EC) 1 cap PO QDAY Adult Multivitamin Gummies 200 mcg Tablet,Chewable 1 tab PO QDAY acetaminophen 500 mg Tablet 500 mg PO PRN PRN (Reason: pain) Follow Up Plan Follow up with: Meka Polanco ARNP [Primary Care Provider] - Patient Disposition: [facility] Prognosis: Good Rehab Potential: Serious Overall status at discharge: patient is not back to baseline Discharge Orders: Discharge Order (Routine); Ordered 07/17/22 Ordered By: Santo Elmore QUALITY VTE Deep Vein Thrombosis/Pulmonary Embolism Present on Admission: No
--- NOTE | 2022-07-17 14:53 | Cat Scan Report ---
CLINICAL INFORMATION: Anemia. Evaluate for blood loss source COMPARISON: Abdomen and pelvic CT 07/11/2019. Abdominal MRI 02/11/2020 TECHNIQUE: Following enteric contrast, 80 cc of Isovue-370 were injected intravenously, and 60 seconds later, 0.625 mm helical slices were obtained from the mid heart through the subtrochanteric regions. Following reconstruction, 2.5 mm sagittal, coronal and axial reformatted images were processed and reviewed at bone, lung and soft tissue windows. Five minutes later, 0.625 mm helical slices were obtained from the mid heart through the kidneys and viewed at soft tissue windows.The exam was performed using radiation dose optimization techniques including, but not limited to, automated exposure control, adjustment of the mA and/or kV according to patient size and use of iterative reconstruction technique. FINDINGS: The lung bases show small bilateral pleural effusions with subsegmental atelectasis in the overlying posterior lower lobes. The heart is mildly enlarged with calcification in aortic valve.. Abdominal images show severe hepatic steatosis-stable from prior CT. No focal hepatic lesions. Gallbladder is unremarkable. A 3.6 cm cystic lesion now dominates the pancreatic head neck and uncinate process. There is moderate central hemorrhage. It compresses both the intrapancreatic common bile duct and Wirsungs' pancreatic duct. The upstream common bile duct is moderately dilated-10 mm. the upstream pancreatic duct also dilated 5 mm. The mass does not appear to encase the peripancreatic vasculature. Mild edema in the peripancreatic fat suggesting the possibility of complicated pancreatitis. Both adrenal glands and spleen are normal. The aorta is normal diameter with scattered plaque aortic branches are normal. Small amount of free fluid noted in the deep true pelvis. There is no adenopathy or free air. Both contrasted kidneys are normal and symmetric in size, position, configuration and attenuation: Both kidneys are 10 cm in length. A lobulated inhomogeneously enhancing mass, in the inferior pole the right kidney and has increased from 2.1 x 1.2 cm on the comparison CT three years ago to 2.6 x 1.4 cm. This could represent a low-grade renal cell carcinoma. Scattered small nonobstructing stones are seen in the calyces of both kidneys: 3 mm superior calyx right kidney, 1 mm mid calyx right kidney, 2 mm inferior calyx right kidney, two in the inferior calyces of the left kidney less than 2 mm. 3 mm mid calyx left kidney and two in the superior calyx left kidney both less than 2 mm. A 3.4 cm simple cyst superior pole left kidney is stable. Pelvic images show prostate is unremarkable. Diffuse wall thickening of urinary bladder may be artifact of underdistention. Stomach, small bowel, appendix region and large bowel are grossly normal. Bone windows show mild chronic L1 compression fracture stable. Degenerative change lower lumbar spine. IMPRESSION: 1. 3.6 cm hemorrhagic cystic mass dominating the pancreatic head-new from a comparison abdominal CT MRI over two years-02/11/2020. Suspect IPMN or cystic mucinous neoplasm. It could also represent a cystic metastases or necrotic pancreatic adenocarcinoma. Suggest referral to advanced gastroenterology for endoscopic ultrasound-guided examination and aspiration for cytology. The mass impinges the intrapancreatic common bile and Wirsungs pancreatic duct resulting in upstream duct dilatation. There is also mild edema in the peripancreatic fat planes suggesting chronic pancreatitis. Please correlate with lipase and amylase. There is no evidence of adenopathy or metastases. 2. 2.6 cm inhomogeneously enhancing mass in the inferior pole of the right kidney demonstrates slow growth since the comparison CT over three years prior. This could represent a very low grade renal cell carcinoma. Consider CT-guided biopsy 3. Marked hepatic steatosis-stable 4. Small bilateral pleural effusions-stable 5. Small nonobstructing stones both kidneys Interpreted and Authenticated by: Jonathan Rose 07/17/22
--- NOTE | 2022-07-18 08:50 | EKG ---
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 Measurements Intervals [place] Rate: 100 P: MT: QRS: 24 QRSD: 65 T: QT: 419 QTc: 541 Interpretive Statements SINUS TACHYCARDIA Borderline repolarization abnormality Prolonged QT interval Electronically Signed On 07-18-2022 8:50:24 PDT by Jonathan Kelley M.D. /[email or web address]/[email or web address]/[id number]
--- NOTE | 2022-08-15 13:48 | EGD Procedure Note ---
DATE OF PROCEDURE: 07/16/2022 PREOPERATIVE DIAGNOSIS: Upper gastrointestinal bleeding with hemorrhagic anemia. POSTOPERATIVE DIAGNOSIS: Acute toxic gastropathy without varices or ulceration. PROCEDURE: Esophagogastroduodenoscopy. SURGEON: Yoselyn Polanco M.D. FINDINGS: Diffuse thickening and edema of the gastric folds. Normal esophagus without ulceration or varices, thickening of the duodenal folds. A small amount of thin blood in the duodenal bulb. DESCRIPTION OF PROCEDURE: Under general anesthesia, the patient turned to the left lateral decubitus position. Time-out procedure was carried out as per protocol. Bite block was placed. Scope was introduced through the bite block into the esophagus. Esophagus was normal throughout its length. There was no evidence of varices. There was no evidence of esophagitis. There were no Amador's changes. The gastric fundus, body and antrum showed a finding of diffuse thickening and edema of the gastric folds in the past, compatible with acute toxic gastropathy. There were no erosions or ulcerations. The pylorus was normal. There was a small amount of thin blood in the duodenal bulb, but no bleeding site was noted after thorough washings. There were no ulcerations or inflammation noted. Second and third portion of duodenum were normal. Scope was pulled back and retroflex view was done. The patient tolerated the procedure well. Air was suctioned from the stomach and the scope was removed. He was awakened and transferred to the PACU in satisfactory condition. LCS:sabi Job ID: [id number] Doc ID: [id number] Yoselyn Polanco M.D.
== END 2022-07-17 15:35 | disposition short-term general hospital (02) | DRG 812 ==
LOC: ED 19:33 → ICU 07-16 07:05
PROVIDERS: ADMIT Internal Medicine; ATTEND Internal Medicine

== ENCOUNTER 2024-01-05 08:25 | Inpatient (IN) ==
[2024-01-05] MEDS ORDERED: IOPAMIDOL 100 ML BOTTLE IV ONE ×2 (08:26)
[2024-01-05 09:40] LABS: Basophils # (Auto) 0.02 K/mcL (0.00-0.30); Basophils % (Auto) 0.3 % (0.0-2.0); Eosinophils # (Auto) 0.01 K/mcL (0.00-0.70); Eosinophils % (Auto) 0.2 % (0.0-7.0); Hematocrit 26.1 % (40.1-51.0); Hemoglobin 7.6 g/dL (13.7-17.5); Lymphocytes # (Auto) 0.65 K/mcL (1.50-4.80); Lymphocytes % (Auto) 10.2 % (15.5-49.0); Mean Cell Volume 78.1 fL (80.0-100.0); Mean Corpuscular HGB Conc 29.1 g/dL (31.0-36.0); Mean Platelet Volume 8.3 fL (8.8-12.5); Monocytes # (Auto) 0.56 K/mcL (0.10-0.90); Monocytes % (Auto) 8.8 % (1.0-12.0); Neutrophils % (Auto) 80.2 % (38.0-78.0); Platelet Count 393 K/mcL (140-440); RBC 3.34 M/mcL (4.63-6.08); Red Cell Distribution Width 15.7 % (11.5-14.5); WBC 6.4 K/mcL (4.5-11.0)
[2024-01-05 09:56] LABS: ALT/SGPT < 5 U/L (<40); AST/SGOT 22 U/L (<40); Albumin 2.9 gm/dL (3.2-5.2); Albumin/Globulin Ratio 0.9 (1.0-2.3); Alkaline Phosphatase 95 U/L (39-117); Bilirubin,Total 0.4 mg/dL (0.1-1.0); Blood Urea Nitrogen 15 mg/dL (8-23); Calcium 8.6 mg/dL (8.6-10.4); Carbon Dioxide 27 mmol/L (22-30); Chloride 98 mmol/L (96-108); Globulin 3.3 gm/dL (2.2-3.7); Glomerular Filtration Rate 102; Glucose 117 mg/dL (70-105)
[2024-01-05] MEDS: PANTOPRAZOLE 40 MG VIAL IV ONE (09:59)
[2024-01-05] MEDS: morphine 2 MG/ML VIAL IV ONE (09:59)
[2024-01-05] MEDS: ALBUMIN HUMAN 25 GM/100 ML BAG IV ONE (12:11)
[2024-01-05 12:15] LABS: Appearance,Urine Clear (Clear); Bilirubin,Urine Negative (Negative); Color,Urine Yellow; Culture Indicated,Urine No; Glucose,Urine (UA) Negative (Negative); Ketones,Urine Negative (Negative); Leukocyte Esterase,Urine Negative /uL (Negative); Mucus,Urine Few /hpf; Nitrate,Urine Negative (Negative); PH,Urine 6.5 (5.0-9.0); Protein,Urine Negative (Negative); Specific Gravity,Urine 1.015 (1.000-1.035); Urine Blood Trace-intact ery/mcL (Negative); Urine RBC 0 /hpf (0-3); Urine Squamous Epithelial Cell 0 /hpf (0-4); Urine WBC 0 /hpf (0-4); Urobilinogen,Urine Normal
[2024-01-05] MEDS: ALBUMIN HUMAN 12.5 GM/50 ML VIAL IV ONE (12:25)
[2024-01-05 14:25] LABS: Glucose,Peritoneal Fluid 61 mg/dL
[2024-01-05] MEDS: HYDROmorphone 0.5 MG/0.5 ML SYRINGE IV ONE (15:12)
[2024-01-05 15:28] LABS: Monocyte,Peritoneal Fluid 92 %; Neutrophils,Peritoneal Fluid 8 %; Nucleated Cel,Peritoneal Fluid 89 /cumm; RBC,Peritoneal Fluid <50,000 /cumm
[2024-01-05 16:47] LABS: Prothrombin Time 13.9 sec (11.9-14.5)
[2024-01-05] MEDS: SENNOSIDES 1 TABLET PO SCH (20:01)
[2024-01-05] MEDS: DOCUSATE SODIUM 100 MG CAPSULE PO SCH (20:01)
[2024-01-05] MEDS: HYDROmorphone 0.5 MG/0.5 ML SYRINGE IV PRN (21:02)
[2024-01-05] MEDS: 0.9 % SODIUM CHLORIDE 10 ML SYRINGE IV SCH (21:11)
[2024-01-06] MEDS: oxyCODONE IR 5 MG TABLET PO PRN (01:14)
[2024-01-06] MEDS ORDERED: NITROGLYCERIN 0.4 MG TAB.SUBL SL PRN (01:28)
[2024-01-06] MEDS: ASPIRIN 81 MG TAB.CHEW CHEWED ONE (01:37)
[2024-01-06] MEDS: ASPIRIN 81 MG TAB.CHEW ONE (01:57)
[2024-01-06 02:03] LABS: Basophils # (Auto) 0.01 K/mcL (0.00-0.30); Basophils % (Auto) 0.2 % (0.0-2.0); Eosinophils # (Auto) 0.02 K/mcL (0.00-0.70); Eosinophils % (Auto) 0.4 % (0.0-7.0); Hematocrit 22.8 % (40.1-51.0); Hemoglobin 6.6 g/dL (13.7-17.5); Lymphocytes # (Auto) 0.66 K/mcL (1.50-4.80); Lymphocytes % (Auto) 13.9 % (15.5-49.0); Mean Cell Volume 78.6 fL (80.0-100.0); Mean Corpuscular HGB Conc 28.9 g/dL (31.0-36.0); Mean Platelet Volume 8.9 fL (8.8-12.5); Monocytes # (Auto) 0.43 K/mcL (0.10-0.90); Monocytes % (Auto) 9.1 % (1.0-12.0); Neutrophils % (Auto) 76.2 % (38.0-78.0); Platelet Count 339 K/mcL (140-440); Red Cell Distribution Width 15.9 % (11.5-14.5); WBC 4.8 K/mcL (4.5-11.0)
[2024-01-06 02:12] LABS: ALT/SGPT < 5 U/L (<40); AST/SGOT 18 U/L (<40); Albumin 2.7 gm/dL (3.2-5.2); Alkaline Phosphatase 74 U/L (39-117); Bilirubin,Total 0.3 mg/dL (0.1-1.0); Blood Urea Nitrogen 15 mg/dL (8-23); Calcium 8.2 mg/dL (8.6-10.4); Carbon Dioxide 30 mmol/L (22-30); Chloride 96 mmol/L (96-108); Creatine Kinase 24 U/L (24-195); Creatine Kinase MB 2.5 ng/mL (<6.7); Globulin 2.6 gm/dL (2.2-3.7); Glomerular Filtration Rate 110; Glucose 88 mg/dL (70-105)
[2024-01-06] MEDS: PANTOPRAZOLE 40 MG VIAL IV ONE ×2 (02:36)
[2024-01-06] MEDS: 0.9 % SODIUM CHLORIDE 250 ML IV SCH (02:39)
[2024-01-06] MEDS: ceFAZolin 1 GM VIAL IP SCH (02:41)
[2024-01-06] MEDS: ceFAZolin 1 GM VIAL ONE (02:41)
[2024-01-06] MEDS: OCTREOTIDE ACETATE 500 MCG in 0.9 % SODIUM CHLORIDE 499.5 ML IV SCH (03:01)
[2024-01-06] MEDS: OCTREOTIDE ACETATE 50 MCG/ML AMPUL IV ONE (03:01)
[2024-01-06] MEDS: ONDANSETRON 4 MG/2 ML VIAL IV PRN (03:07)
[2024-01-06] MEDS: PANTOPRAZOLE 80 MG in 0.9 % SODIUM CHLORIDE 100 ML IV SCH (03:08)
[2024-01-06 04:37] LABS: C-Reactive Protein 3.36 mg/dL (0.03-0.80)
[2024-01-06 04:38] LABS: ALT/SGPT < 5 U/L (<40); AST/SGOT 29 U/L (<40); Albumin 2.6 gm/dL (3.2-5.2); Alkaline Phosphatase 71 U/L (39-117); Bilirubin,Direct < 0.2 mg/dL (0-0.3); Bilirubin,Total 0.3 mg/dL (0.1-1.0); Blood Urea Nitrogen 15 mg/dL (8-23); Calcium 8.2 mg/dL (8.6-10.4); Carbon Dioxide 28 mmol/L (22-30); Chloride 97 mmol/L (96-108); Globulin 2.5 gm/dL (2.2-3.7); Glomerular Filtration Rate 110; Glucose 78 mg/dL (70-105); Lactate Dehydrogenase 137 U/L (135-225); Phosphorous 3.7 mg/dL (2.5-4.5); Triglycerides 88 mg/dL (<150); Uric Acid 5.8 mg/dL (2.5-8.0)
[2024-01-06 06:26] LABS: Iron 13 ug/dL (61-157); TIBC Calculation 185 ug/dl (228-428); Transferrin % Saturation 7 % (20-50)
[2024-01-06 07:41] LABS: Basophils # (Auto) 0.01 K/mcL (0.00-0.30); Basophils % (Auto) 0.2 % (0.0-2.0); Eosinophils # (Auto) 0.04 K/mcL (0.00-0.70); Eosinophils % (Auto) 0.9 % (0.0-7.0); Hematocrit 20.9 % (40.1-51.0); Hemoglobin 6.2 g/dL (13.7-17.5); Lymphocytes # (Auto) 0.66 K/mcL (1.50-4.80); Lymphocytes % (Auto) 14.6 % (15.5-49.0); Mean Cell Volume 77.4 fL (80.0-100.0); Mean Corpuscular HGB Conc 29.7 g/dL (31.0-36.0); Mean Platelet Volume 8.6 fL (8.8-12.5); Monocytes # (Auto) 0.39 K/mcL (0.10-0.90); Monocytes % (Auto) 8.6 % (1.0-12.0); Neutrophils % (Auto) 75.5 % (38.0-78.0); Platelet Count 314 K/mcL (140-440); Red Cell Distribution Width 15.9 % (11.5-14.5); WBC 4.5 K/mcL (4.5-11.0)
[2024-01-06] MEDS: OMEPRAZOLE 20 MG CAPSULE PO SCH (07:51)
[2024-01-06] MEDS: cefTRIAXone 1 GM VIAL IV SCH (11:25)
[2024-01-06] MEDS ORDERED: DRONABINOL 2.5 MG PO SCH (17:00)
[2024-01-06] MEDS: Dorzolamide-Timolol 22.3-6.8 mg/mL drops OP SCH (19:43)
[2024-01-07 06:49] LABS: ALT/SGPT < 5 U/L (<40); AST/SGOT 19 U/L (<40); Albumin 2.4 gm/dL (3.2-5.2); Alkaline Phosphatase 64 U/L (39-117); Bilirubin,Direct < 0.2 mg/dL (0-0.3); Bilirubin,Total 0.4 mg/dL (0.1-1.0); Blood Urea Nitrogen 12 mg/dL (8-23); Calcium 7.5 mg/dL (8.6-10.4); Carbon Dioxide 27 mmol/L (22-30); Chloride 99 mmol/L (96-108); Globulin 2.3 gm/dL (2.2-3.7); Glomerular Filtration Rate 102; Glucose 118 mg/dL (70-105); Lactate Dehydrogenase 156 U/L (135-225); Phosphorous 2.9 mg/dL (2.5-4.5); Triglycerides 98 mg/dL (<150); Uric Acid 5.8 mg/dL (2.5-8.0)
[2024-01-07] MEDS: PANTOPRAZOLE 80 MG in 0.9 % SODIUM CHLORIDE 100 ML IV SCH (11:10)
[2024-01-07] MEDS: FUROSEMIDE 20 MG TABLET PO SCH (11:12)
[2024-01-07] MEDS: SPIRONOLACTONE 25 MG TABLET PO SCH (11:12)
[2024-01-07] MEDS: PANTOPRAZOLE 40 MG VIAL IV SCH (16:11)
[2024-01-08 07:37] LABS: Blood Urea Nitrogen 10 mg/dL (8-23); Calcium 7.4 mg/dL (8.6-10.4); Carbon Dioxide 31 mmol/L (22-30); Chloride 94 mmol/L (96-108); Glomerular Filtration Rate 102; Glucose 103 mg/dL (70-105)
[2024-01-08] MEDS: SPIRONOLACTONE 25 MG TABLET PO SCH (09:24)
[2024-01-08] MEDS: FUROSEMIDE 20 MG TABLET PO SCH (09:24)
[2024-01-08] MEDS: PNEUMOCOCCAL 23-VAL P-SAC VAC 0.5 ML SYRINGE IM ONE (13:49)
[2024-01-08] MEDS: FLUZONE QUAD QS2023-24/PF 60 MCG/0.5 ML SYRINGE IM ONE (13:49)
[2024-01-08 16:47] LABS: Hematocrit 33.2 % (40.1-51.0); Hemoglobin 10.1 g/dL (13.7-17.5)
[2024-01-09 07:49] LABS: Basophils # (Auto) 0.01 K/mcL (0.00-0.30); Basophils % (Auto) 0.2 % (0.0-2.0); Eosinophils # (Auto) 0.13 K/mcL (0.00-0.70); Eosinophils % (Auto) 3.1 % (0.0-7.0); Hematocrit 33.1 % (40.1-51.0); Hemoglobin 10.1 g/dL (13.7-17.5); Lymphocytes # (Auto) 0.77 K/mcL (1.50-4.80); Lymphocytes % (Auto) 18.3 % (15.5-49.0); Mean Cell Volume 80.7 fL (80.0-100.0); Mean Corpuscular HGB Conc 30.5 g/dL (31.0-36.0); Mean Platelet Volume 8.7 fL (8.8-12.5); Monocytes # (Auto) 0.48 K/mcL (0.10-0.90); Monocytes % (Auto) 11.4 % (1.0-12.0); Neutrophils % (Auto) 66.8 % (38.0-78.0); Platelet Count 315 K/mcL (140-440); Red Cell Distribution Width 16.9 % (11.5-14.5); WBC 4.2 K/mcL (4.5-11.0)
[2024-01-09] MEDS ORDERED: KETAMINE 50 MG/ML ML IV PRN (08:07)
[2024-01-09 09:23] LABS: Blood Urea Nitrogen 8 mg/dL (8-23); Carbon Dioxide 31 mmol/L (22-30); Chloride 93 mmol/L (96-108); Glomerular Filtration Rate 110; Glucose 62 mg/dL (70-105)
[2024-01-09] MEDS: MIDAZOLAM 2 MG/2 ML VIAL IV SCH (12:02)
[2024-01-09] MEDS: PROPOFOL 200 MG/20 ML VIAL IV SCH (12:02)
[2024-01-09] MEDS: POTASSIUM CHLORIDE 40 MEQ in DEXTROSE 5% IN WATER 500 ML IV SCH (12:45)
[2024-01-09] MEDS: ACETAMINOPHEN 325 MG TABLET PO PRN (20:25)
[2024-01-10] MEDS: POTASSIUM CHLORIDE 20 MEQ TABLET PO ONE (14:06)
[2024-01-10] MEDS ORDERED: APIXABAN 5 MG TABLET PO SCH (21:00)
[2024-01-11 06:38] LABS: Basophils # (Auto) 0.02 K/mcL (0.00-0.30); Basophils % (Auto) 0.5 % (0.0-2.0); Eosinophils % (Auto) 4.7 % (0.0-7.0); Hematocrit 30.2 % (40.1-51.0); Hemoglobin 9.5 g/dL (13.7-17.5); Lymphocytes % (Auto) 23.5 % (15.5-49.0); Mean Cell Volume 80.1 fL (80.0-100.0); Mean Corpuscular HGB Conc 31.5 g/dL (31.0-36.0); Mean Platelet Volume 9.2 fL (8.8-12.5); Monocytes # (Auto) 0.42 K/mcL (0.10-0.90); Monocytes % (Auto) 9.9 % (1.0-12.0); Neutrophils % (Auto) 61.2 % (38.0-78.0); Platelet Count 329 K/mcL (140-440); RBC 3.77 M/mcL (4.63-6.08); Red Cell Distribution Width 17.7 % (11.5-14.5); WBC 4.3 K/mcL (4.5-11.0)
[2024-01-11 07:04] LABS: ALT/SGPT < 5 U/L (<40); AST/SGOT 20 U/L (<40); Albumin 2.2 gm/dL (3.2-5.2); Albumin/Globulin Ratio 0.8 (1.0-2.3); Alkaline Phosphatase 57 U/L (39-117); Bilirubin,Direct < 0.2 mg/dL (0-0.3); Bilirubin,Total 0.3 mg/dL (0.1-1.0); Blood Urea Nitrogen 12 mg/dL (8-23); Calcium 7.3 mg/dL (8.6-10.4); Carbon Dioxide 31 mmol/L (22-30); Chloride 93 mmol/L (96-108); Globulin 2.9 gm/dL (2.2-3.7); Glomerular Filtration Rate 110; Glucose 100 mg/dL (70-105); Lactate Dehydrogenase 181 U/L (135-225); Phosphorous 2.1 mg/dL (2.5-4.5); Triglycerides 66 mg/dL (<150); Uric Acid 4.5 mg/dL (2.5-8.0)
[2024-01-11] MEDS: PANTOPRAZOLE 40 MG TABLET PO SCH (09:21)
[2024-01-11] MEDS: ENOXAPARIN 40 MG/0.4 ML SYRINGE SQ SCH (09:21)
== END 2024-01-11 16:40 | disposition home or self-care (01) | DRG 438 ==
LOC: ED 08:25 → MEDSUR 19:04
PROVIDERS: ADMIT Internal Medicine; ATTEND Internal Medicine

== ENCOUNTER 2024-02-04 16:33 | Inpatient (IN) ==
[2024-02-04] MEDS ORDERED: IOPAMIDOL 100 ML BOTTLE IV ONE (16:34)
[2024-02-04 18:00] LABS: Basophils # (Auto) 0.01 K/mcL (0.00-0.30); Basophils % (Auto) 0.2 % (0.0-2.0); Eosinophils # (Auto) 0.07 K/mcL (0.00-0.70); Eosinophils % (Auto) 1.4 % (0.0-7.0); Hematocrit 32.2 % (40.1-51.0); Hemoglobin 9.9 g/dL (13.7-17.5); Lymphocytes # (Auto) 0.55 K/mcL (1.50-4.80); Lymphocytes % (Auto) 10.8 % (15.5-49.0); Mean Cell Volume 79.7 fL (80.0-100.0); Mean Corpuscular HGB Conc 30.7 g/dL (31.0-36.0); Mean Platelet Volume 8.4 fL (8.8-12.5); Monocytes % (Auto) 9.8 % (1.0-12.0); Neutrophils % (Auto) 77.8 % (38.0-78.0); Platelet Count 475 K/mcL (140-440); RBC 4.04 M/mcL (4.63-6.08); Red Cell Distribution Width 18.3 % (11.5-14.5); WBC 5.1 K/mcL (4.5-11.0)
[2024-02-04 18:14] LABS: ALT/SGPT 5 U/L (<40); AST/SGOT 22 U/L (<40); Albumin/Globulin Ratio 0.8 (1.0-2.3); Alkaline Phosphatase 98 U/L (39-117); Bilirubin,Total 0.5 mg/dL (0.1-1.0); Blood Urea Nitrogen 16 mg/dL (8-23); Calcium 8.8 mg/dL (8.6-10.4); Carbon Dioxide 29 mmol/L (22-30); Chloride 96 mmol/L (96-108); Glomerular Filtration Rate 110; Glucose 106 mg/dL (70-105)
[2024-02-04] MEDS: ONDANSETRON 4 MG/2 ML VIAL IV ONE ×3 (18:26→23:32)
[2024-02-04] MEDS: ACETAMINOPHEN 650 MG/65 ML BAG IV ONE (18:26)
[2024-02-04 21:54] LABS: Eosinophils,Peritoneal Fluid 1 %; Monocyte,Peritoneal Fluid 78 %; Neutrophils,Peritoneal Fluid 11 %; Nucleated Cel,Peritoneal Fluid 341 /cumm; RBC,Peritoneal Fluid <50,000 /cumm
[2024-02-04] MEDS: 0.9 % SODIUM CHLORIDE 500 ML IV ONE (23:31)
[2024-02-05] MEDS: 0.9 % SODIUM CHLORIDE 1,000 ML IV SCH (03:42)
[2024-02-05] MEDS: ONDANSETRON 4 MG/2 ML VIAL IV PRN (07:14)
[2024-02-05] MEDS: 0.9 % SODIUM CHLORIDE 10 ML SYRINGE IV SCH ×2 (08:25→14:15)
[2024-02-05] MEDS ORDERED: POLYETHYLENE GLYCOL 3350 17 GM PACKET PO PRN (08:32)
[2024-02-05] MEDS ORDERED: POTASSIUM CHLORIDE 40 MEQ in DEXTROSE 5% IN WATER 500 ML IV PRN (08:32)
[2024-02-05] MEDS ORDERED: MAGNESIUM SULFATE 2 GM/50 ML BAG IV PRN (08:32)
[2024-02-05] MEDS ORDERED: POTASSIUM CHLORIDE 20 MEQ TABLET PO PRN ×2 (08:32)
[2024-02-05] MEDS ORDERED: IPRATROPIUM/ALBUTEROL 3 ML AMPUL.NEB NEB PRN (08:33)
[2024-02-05] MEDS ORDERED: ACETAMINOPHEN 325 MG TABLET PO PRN (08:33)
[2024-02-05 09:10] LABS: Lactate Dehydrogenase 117 U/L (135-225)
[2024-02-05] MEDS: DOCUSATE SODIUM 100 MG CAPSULE PO SCH (09:52)
[2024-02-05] MEDS: HYDROmorphone 0.5 MG/0.5 ML SYRINGE IV PRN (09:52)
[2024-02-05] MEDS: PANTOPRAZOLE 40 MG VIAL IV SCH (11:44)
[2024-02-05] MEDS: FUROSEMIDE 40 MG TABLET PO SCH (11:45)
[2024-02-05] MEDS: SPIRONOLACTONE 25 MG TABLET PO SCH (11:45)
[2024-02-05] MEDS: MULTIVIT,THER IRON,CA,FA & MIN 1 TABLET PO SCH (11:46)
[2024-02-05] MEDS: SUCRALFATE 1 GM/10 ML ORAL.SUSP PO SCH (12:23)
[2024-02-05] MEDS: SENNOSIDES 1 TABLET PO SCH (19:50)
[2024-02-06 06:36] LABS: Basophils # (Auto) 0.01 K/mcL (0.00-0.30); Basophils % (Auto) 0.2 % (0.0-2.0); Eosinophils # (Auto) 0.21 K/mcL (0.00-0.70); Eosinophils % (Auto) 3.5 % (0.0-7.0); Hematocrit 23.9 % (40.1-51.0); Hemoglobin 7.3 g/dL (13.7-17.5); Lymphocytes # (Auto) 1.09 K/mcL (1.50-4.80); Lymphocytes % (Auto) 18.4 % (15.5-49.0); Mean Cell Volume 81.3 fL (80.0-100.0); Mean Corpuscular HGB Conc 30.5 g/dL (31.0-36.0); Mean Platelet Volume 8.6 fL (8.8-12.5); Monocytes # (Auto) 0.67 K/mcL (0.10-0.90); Monocytes % (Auto) 11.3 % (1.0-12.0); Neutrophils % (Auto) 66.4 % (38.0-78.0); Platelet Count 343 K/mcL (140-440); RBC 2.94 M/mcL (4.63-6.08); Red Cell Distribution Width 18.7 % (11.5-14.5); WBC 5.9 K/mcL (4.5-11.0)
[2024-02-06 07:00] LABS: ALT/SGPT < 5 U/L (<40); AST/SGOT 17 U/L (<40); Albumin 2.5 gm/dL (3.2-5.2); Albumin/Globulin Ratio 0.9 (1.0-2.3); Alkaline Phosphatase 65 U/L (39-117); Bilirubin,Direct < 0.2 mg/dL (0-0.3); Bilirubin,Total 0.3 mg/dL (0.1-1.0); Blood Urea Nitrogen 17 mg/dL (8-23); Calcium 8.1 mg/dL (8.6-10.4); Carbon Dioxide 30 mmol/L (22-30); Chloride 96 mmol/L (96-108); Globulin 2.9 gm/dL (2.2-3.7); Glomerular Filtration Rate 110; Glucose 91 mg/dL (70-105); Lactate Dehydrogenase 121 U/L (135-225); Phosphorous 2.7 mg/dL (2.5-4.5); Triglycerides 108 mg/dL (<150); Uric Acid 5.4 mg/dL (2.5-8.0)
[2024-02-06] MEDS ORDERED: LACTULOSE 20 GM/30 ML ORAL.SOL PO PRN (08:01)
[2024-02-06 14:05] LABS: Hematocrit 24.9 % (40.1-51.0); Hemoglobin 7.5 g/dL (13.7-17.5)
[2024-02-07 06:08] LABS: Basophils # (Auto) 0.01 K/mcL (0.00-0.30); Basophils % (Auto) 0.2 % (0.0-2.0); Eosinophils # (Auto) 0.11 K/mcL (0.00-0.70); Eosinophils % (Auto) 2.3 % (0.0-7.0); Hematocrit 24.1 % (40.1-51.0); Hemoglobin 7.4 g/dL (13.7-17.5); Lymphocytes # (Auto) 0.95 K/mcL (1.50-4.80); Lymphocytes % (Auto) 19.8 % (15.5-49.0); Mean Cell Volume 82.3 fL (80.0-100.0); Mean Corpuscular HGB Conc 30.7 g/dL (31.0-36.0); Mean Platelet Volume 8.8 fL (8.8-12.5); Monocytes # (Auto) 0.59 K/mcL (0.10-0.90); Monocytes % (Auto) 12.3 % (1.0-12.0); Platelet Count 326 K/mcL (140-440); RBC 2.93 M/mcL (4.63-6.08); Red Cell Distribution Width 18.3 % (11.5-14.5); WBC 4.8 K/mcL (4.5-11.0)
[2024-02-07 06:38] LABS: ALT/SGPT < 5 U/L (<40); AST/SGOT 17 U/L (<40); Albumin 2.4 gm/dL (3.2-5.2); Albumin/Globulin Ratio 0.8 (1.0-2.3); Alkaline Phosphatase 68 U/L (39-117); Bilirubin,Direct < 0.2 mg/dL (0-0.3); Bilirubin,Total < 0.2 mg/dL (0.1-1.0); Blood Urea Nitrogen 13 mg/dL (8-23); Calcium 8.1 mg/dL (8.6-10.4); Carbon Dioxide 33 mmol/L (22-30); Chloride 95 mmol/L (96-108); Globulin 2.9 gm/dL (2.2-3.7); Glomerular Filtration Rate 110; Glucose 99 mg/dL (70-105); Lactate Dehydrogenase 114 U/L (135-225); Phosphorous 2.6 mg/dL (2.5-4.5); Triglycerides 69 mg/dL (<150); Uric Acid 5.3 mg/dL (2.5-8.0)
[2024-02-08 08:13] LABS: Hematocrit 24.8 % (40.1-51.0); Hemoglobin 7.6 g/dL (13.7-17.5)
[2024-02-08 14:10] LABS: Hematocrit 26.7 % (40.1-51.0); Hemoglobin 8.2 g/dL (13.7-17.5)
[2024-02-08] MEDS: oxyCODONE IR 5 MG TABLET PO PRN (17:15)
[2024-02-08] MEDS: HYDROmorphone 0.5 MG/0.5 ML SYRINGE IV PRN (19:16)
[2024-02-09] MEDS: HYDROmorphone 2 MG TABLET PO PRN (12:35)
[2024-02-09 15:46] LABS: Basophils # (Auto) 0.01 K/mcL (0.00-0.30); Basophils % (Auto) 0.2 % (0.0-2.0); Eosinophils # (Auto) 0.15 K/mcL (0.00-0.70); Eosinophils % (Auto) 3.2 % (0.0-7.0); Hematocrit 26.7 % (40.1-51.0); Hemoglobin 8.2 g/dL (13.7-17.5); Lymphocytes % (Auto) 21.6 % (15.5-49.0); Mean Cell Volume 80.9 fL (80.0-100.0); Mean Corpuscular HGB Conc 30.7 g/dL (31.0-36.0); Mean Platelet Volume 8.7 fL (8.8-12.5); Monocytes # (Auto) 0.54 K/mcL (0.10-0.90); Monocytes % (Auto) 11.7 % (1.0-12.0); Neutrophils % (Auto) 63.1 % (38.0-78.0); Platelet Count 367 K/mcL (140-440); Red Cell Distribution Width 18.3 % (11.5-14.5); WBC 4.6 K/mcL (4.5-11.0)
[2024-02-09 16:06] LABS: ALT/SGPT < 5 U/L (<40); AST/SGOT 17 U/L (<40); Albumin 2.6 gm/dL (3.2-5.2); Albumin/Globulin Ratio 0.7 (1.0-2.3); Alkaline Phosphatase 88 U/L (39-117); Bilirubin,Direct < 0.2 mg/dL (0-0.3); Bilirubin,Total 0.3 mg/dL (0.1-1.0); Blood Urea Nitrogen 17 mg/dL (8-23); Carbon Dioxide 34 mmol/L (22-30); Chloride 89 mmol/L (96-108); Globulin 3.5 gm/dL (2.2-3.7); Glomerular Filtration Rate 102; Glucose 107 mg/dL (70-105); Lactate Dehydrogenase 106 U/L (135-225); Phosphorous 3.3 mg/dL (2.5-4.5); Triglycerides 77 mg/dL (<150); Uric Acid 5.3 mg/dL (2.5-8.0)
[2024-02-09 18:32] LABS: Nucleated Cel,Peritoneal Fluid 236 /cumm; RBC,Peritoneal Fluid <50,000 /cumm
[2024-02-09 18:37] LABS: Mesothelial,Peritoneal Fluid 0 %
[2024-02-09 18:42] LABS: Monocyte,Peritoneal Fluid 19 %; Neutrophils,Peritoneal Fluid 47 %
[2024-02-09 19:03] LABS: Total Protein,Peritoneal Fluid 1.8 gm/dL
[2024-02-09 19:43] LABS: Amylase,Peritoneal Fluid 13 U/L
[2024-02-10] MEDS ORDERED: HYDROmorphone 0.5 MG/0.5 ML SYRINGE IV PRN (18:25)
[2024-02-10] MEDS: HYDROmorphone 0.5 MG/0.5 ML SYRINGE IV PRN (20:51)
[2024-02-10] MEDS: HYDROmorphone 2 MG TABLET PO PRN (23:26)
[2024-02-11 07:41] LABS: Basophils # (Auto) 0.01 K/mcL (0.00-0.30); Basophils % (Auto) 0.2 % (0.0-2.0); Eosinophils # (Auto) 0.23 K/mcL (0.00-0.70); Eosinophils % (Auto) 4.1 % (0.0-7.0); Hematocrit 25.2 % (40.1-51.0); Hemoglobin 7.9 g/dL (13.7-17.5); Lymphocytes # (Auto) 1.18 K/mcL (1.50-4.80); Lymphocytes % (Auto) 21.1 % (15.5-49.0); Mean Cell Volume 80.5 fL (80.0-100.0); Mean Corpuscular HGB Conc 31.3 g/dL (31.0-36.0); Mean Platelet Volume 8.9 fL (8.8-12.5); Monocytes # (Auto) 0.61 K/mcL (0.10-0.90); Monocytes % (Auto) 10.9 % (1.0-12.0); Neutrophils % (Auto) 63.5 % (38.0-78.0); Platelet Count 358 K/mcL (140-440); RBC 3.13 M/mcL (4.63-6.08); Red Cell Distribution Width 18.2 % (11.5-14.5); WBC 5.6 K/mcL (4.5-11.0)
[2024-02-11 08:00] LABS: ALT/SGPT 7 U/L (<40); AST/SGOT 18 U/L (<40); Albumin 2.7 gm/dL (3.2-5.2); Albumin/Globulin Ratio 0.8 (1.0-2.3); Alkaline Phosphatase 91 U/L (39-117); Bilirubin,Direct < 5.0 mg/dL (<0.3); Bilirubin,Total 0.2 mg/dL (0.1-1.0); Blood Urea Nitrogen 20 mg/dL (8-23); Calcium 8.4 mg/dL (8.6-10.4); Carbon Dioxide 36 mmol/L (22-30); Chloride 88 mmol/L (96-108); Globulin 3.4 gm/dL (2.2-3.7); Glomerular Filtration Rate 102; Glucose 90 mg/dL (70-105); Lactate Dehydrogenase 99 U/L (135-225); Phosphorous 3.5 mg/dL (2.5-4.5); Triglycerides 63 mg/dL (<150)
[2024-02-11 08:08] LABS: Prothrombin Time 13.8 sec (11.9-14.5)
[2024-02-11] MEDS: ENOXAPARIN 40 MG/0.4 ML SYRINGE SQ SCH (09:51)
[2024-02-11 11:32] LABS: ABG Methemoglobin 0.2 % (0.4-1.5); Total Hemoglobin 9.7 gm/Dl (13.5-16.5); VBG Base Excess 12 (-2-3); VBG HCO3 37.3 mmol/L (24.0-28.0); VBG Oxygen Saturation 42.9 % (40.0-70.0); VBG PCO2 56.5 mmHg (41.0-51.0); VBG PH 7.44 U (7.32-7.42); VBG PO2 25.2 mmHg (25.0-40.0)
[2024-02-11] MEDS: ACETAMINOPHEN 325 MG TABLET PO PRN (19:15)
[2024-02-11 23:44] LABS: Albumin 2.8 gm/dL (3.2-5.2); Blood Urea Nitrogen 20 mg/dL (8-23); Calcium 8.6 mg/dL (8.6-10.4); Carbon Dioxide 33 mmol/L (22-30); Chloride 87 mmol/L (96-108); Glomerular Filtration Rate 102; Glucose 81 mg/dL (70-105); Phosphorous 3.9 mg/dL (2.5-4.5)
[2024-02-12] MEDS: PANTOPRAZOLE 40 MG PACKET PO SCH (08:45)
[2024-02-12] MEDS ORDERED: ENOXAPARIN 40 MG/0.4 ML SYRINGE SQ SCH (09:00)
[2024-02-12] MEDS: METOCLOPRAMIDE 10 MG/2 ML VIAL IV PRN (15:42)
[2024-02-12] MEDS ORDERED: NITROGLYCERIN 0.4 MG TAB.SUBL SL ONE (16:23)
[2024-02-12] MEDS: NITROGLYCERIN 0.4 MG TAB.SUBL SL PRN (16:26)
== END 2024-02-12 16:35 | disposition short-term general hospital (02) | DRG 438 ==
LOC: ED 16:33 → MEDSUR 16:33
PROVIDERS: ADMIT Internal Medicine; ATTEND Internal Medicine